=== PATIENT | female | born 1995 | race Caucasian/White ===

== ENCOUNTER 2021-11-24 16:59 | Emergency (ER) | payer OTHER ==
[2021-11-24 17:07] VITALS: BP 122/83; PULSE 76; TEMP 97; BMI 32.9
[2021-11-24] MEDS ORDERED: KETOROLAC TROMETHAMINE 30 MG/1 ML VIAL IM ONE (17:36)
[2021-11-24] MEDS ORDERED: KETOROLAC TROMETHAMINE 30 MG/1 ML VIAL ONE (17:38)
== END 2021-11-24 18:50 ==
LOC: JERFT 16:59
CPT/HCPCS: 71046-TC-FY; 99284-25

== ENCOUNTER 2023-03-19 04:44 | Emergency (ER) | payer OTHER ==
[2023-03-19 04:59] VITALS: RESP 16; TEMP 98.2; BMI 34.7
[2023-03-19 06:08] LABS: BASO % 0.5 % (0-2.0); EOS % 1.7 % (0-4.5); HEMATOCRIT 38.8 % (32.4-45.2); LYMPH % 29.3 % (8-40); MCH 28.1 pg (25.7-33.7); MCHC 33.5 g/dl (32.0-36.0); MEAN CELL VOLUME 83.8 fl (80-96); MEAN PLT VOLUME 8.6 fl (7.5-11.1); MONO % 5.9 % (3.8-10.2); NEUT % 62.6 % (42.8-82.8); PLATELET COUNT 302 10^3/uL (134-434); RBC 4.63 M/mm3 (3.60-5.2); RDW 14.5 % (11.6-15.6); WHITE BLOOD COUNT 7.6 K/mm3 (4.0-10.0)
[2023-03-19 06:11] LABS: EPI CELLS 15 /uL (0-25.1); HYALINE CASTS 0 /uL (0-3.1); PH,URINE 5.5 (5.0-8.0); URINE APPEARANCE CLEAR; URINE BACTERIA 60 /uL (0-1359); URINE BILIRUBIN NEGATIVE (NEGATIVE); URINE COLOR YELLOW; URINE GLUCOSE (UA) NEGATIVE (NEGATIVE); URINE KETONE NEGATIVE (NEGATIVE); URINE LEUK ESTERASE NEGATIVE (NEGATIVE); URINE NITRITE NEGATIVE (NEGATIVE); URINE PROTEIN 1+ (NEGATIVE); URINE RBC 7 /uL (0-23.9); URINE UROBILINOGEN 0.2 mg/dL (0.2-1.0); URINE WBC 6 /uL (0-25.8)
[2023-03-19 06:17] LABS: INR 1.03 (0.83-1.09)
[2023-03-19 06:19] LABS: ACTIVATED PTT 33.7 SECONDS (25.2-36.5)
[2023-03-19 06:29] LABS: POTASSIUM 4.6 mmol/L (3.5-5.1)
[2023-03-19 06:31] LABS: ALBUMIN 3.5 g/dl (3.4-5.0); CALCIUM 8.8 mg/dL (8.5-10.1)
[2023-03-19 06:32] LABS: BLOOD UREA NITROGEN 8.6 mg/dL (7-18)
[2023-03-19 06:34] LABS: CREATININE 0.5 mg/dL (0.55-1.3)
[2023-03-19 06:36] LABS: BILIRUBIN,TOTAL 0.3 mg/dL (0.2-1)
[2023-03-19] MEDS ORDERED: ACETAMINOPHEN 325 MG TABLET (FP) PO ONE (07:38)
[2023-03-19] MEDS ORDERED: ACETAMINOPHEN 325 MG TABLET (FP) ONE (07:40)
[2023-03-19 10:31] VITALS: BP 124/70; PULSE 98
== END 2023-03-19 10:35 | disposition home or self-care (01) ==
LOC: JER 04:44
DX: O20.0 Threatened abortion (principal); R10.2 Pelvic and perineal pain; Z3A.01 Less than 8 weeks gestation of pregnancy
CPT/HCPCS: 36415; 76817-TC; 80053; 81003; 84702; 85025; 85610; 85730; 86850; 86900; 86901; 87086; 99284-25